=== PATIENT | male | born 1940 | race Caucasian/White ===

== ENCOUNTER → 2016-12-29 | Outpatient (CLI) | payer OTHER, BC ==
[~2016-12-29] MED LIST: LEVAQUIN 500 M500 M4 PO; OSELB75 PO; PRILOSEC 20 MG20 MG PO
== END ==
LOC: MRI 08:39
DX: S09.90XA Unspecified injury of head, initial encounter (principal); I67.82 Cerebral ischemia; R42 Dizziness and giddiness; R41.3 Other amnesia; X58.XXXA Exposure to other specified factors, initial encounter; Y93.89 Activity, other specified; Y92.89 Other specified places as the place of occurrence of the external cause; Y99.8 Other external cause status

== ENCOUNTER 2017-01-30 10:17 | Emergency (ER) | payer OTHER, BC ==
[~2017-01-30] VITALS: Ht 180.3 cm; Wt 83.5 kg
--- NOTE | ~2017-01-30 | EKG ---
[address] [place] [address] ELECTROCARDIOGRAM REPORT Name: KAILYN MATA Room #: DEP Gema#: [id number] Admission: 01/30/17 Attend Phys: Discharge: 01/30/17 Date of : 42 Report #: [id number] THIS REPORT FOR: //name// [facility] ED Test Date: 2017-01-30 Test Time: 11:15:02 Pat Name: KAILYN MATA Department: Room: Gender: Housing Officer: Janet QUIROZ : 1940 Requested By: Brayden Smith Order Number: [id number] MD: Horacio Enciso Measurements Intervals [place] Rate: 76 P: 69 SD: 177 QRS: -53 QRSD: 142 T: 44 QT: 404 QTc: 455 Interpretive Statements Sinus rhythm RBBB and LAFB Compared to ECG 05/26/2014 06:03:58 Left anterior fascicular block now present Right bundle-branch block now present Electronically Signed On 01-31-2017 8:21:07 CDT by Horacio Enciso [email or web address] <ELECTRONICALLY SIGNED> By: Horacio Enciso MD, [facility] 01/31/17820 1115 111 Horacio Enciso MD, [facility] /EPI
[2017-01-30 11:16] LABS: HEMATOCRIT 31.7 % (42.0-52.0); HEMOGLOBIN 11.2 gm/dL (14.0-18.0); MCH 34.5 pg (26.0-34.0); MCHC 35.3 g/dL (28.0-37.0); RBC 3.23 mil/uL (4.50-6.00); RDW 13.7 % (10.5-14.5); WBC 10.8 thou/uL (4.0-11.0)
[2017-01-30 11:19] LABS: CALCIUM 9.1 mg/dL (8.5-10.1); CREATININE 1.7 mg/dL (0.7-1.3); POTASSIUM 3.7 mmol/L (3.5-5.1)
[2017-01-30] MEDS ORDERED: ZPAK PO (11:52)
== END 2017-01-30 12:10 | disposition home or self-care (01) ==
LOC: ER 10:17
PROVIDERS: Emergency Medicine
DX: R06.02 Shortness of breath (principal); R05 Cough; M10.9 Gout, unspecified; F17.210 Nicotine dependence, cigarettes, uncomplicated; F10.99 Alcohol use, unspecified with unspecified alcohol-induced disorder

== ENCOUNTER → 2017-05-23 | Outpatient (CLI) | payer OTHER, BC ==
[~2017-05-23] MED LIST changes: +ZPAK PO
== END ==
LOC: MRI 13:37
DX: M48.56XA Collapsed vertebra, not elsewhere classified, lumbar region, initial encounter for fracture (principal); M51.27 Other intervertebral disc displacement, lumbosacral region; M51.46 Schmorl's nodes, lumbar region; M51.36 Other intervertebral disc degeneration, lumbar region; K57.30 Diverticulosis of large intestine without perforation or abscess without bleeding; M79.606 Pain in leg, unspecified; Z98.890 Other specified postprocedural states